=== PATIENT | female | born 1985 | race Caucasian/White ===

== ENCOUNTER 2019-02-20 17:03 | Inpatient (IN) ==
[2019-02-20 18:11] LABS: Basophils # (auto) 0.03 K/uL (0-0.2); Basophils % (auto) 0.2 %; Eosinophils # (auto) 0.16 K/uL (0-0.5); Eosinophils % (auto) 1.1 %; Hematocrit (blood only) 35.2 % (37-47); Hemoglobin 12.2 g/dL (12.0-16.0); Immature Granulocytes # (auto) 0.08 K/uL (0.00-0.02); Immature Granulocytes % (auto) 0.6 %; Lymphocytes # (auto) 3.17 K/uL (1.2-3.4); Lymphocytes % (auto) 21.9 %; Mean Corpuscular Hemoglobin 30.7 pg (25-34); Mean Corpuscular Hgb Conc 34.7 g/dL (32-36); Mean Corpuscular Volume 88.7 fL (80-100); Mean Platelet Volume 13.1 fL (7.4-10.4); Monocytes # (auto) 1.05 K/uL (0.11-0.59); Monocytes % (auto) 7.3 %; Neutrophils # (auto) 9.97 K/uL (1.4-6.5); Neutrophils % (auto) 68.9 %; Nucleated RBC # (auto) 0.02 K/uL (0-0); Nucleated RBC % (auto) 0.1 %; Platelet Count 228 K/uL (130-400); RDW Coefficient of Variation 12.9 % (11.5-14.5); Red Blood Count 3.97 M/uL (4.2-5.4); White Blood Count 14.46 K/uL (4.8-10.8)
[2019-02-20 18:33] LABS: Albumin Level 2.7 gm/dl (3.4-5.0); Bilirubin,Total 0.3 mg/dl (0.2-1); Calcium 9.4 mg/dl (8.5-10.1); Creatinine Clr Calc Pharmacy 136.2 ml/min; Est GFR (African American) 137.6; Est GFR (Non-African American) 118.7; Total Protein 7.2 gm/dl (6.4-8.2)
[2019-02-20 19:13] LABS: Potassium 3.7 mmol/L (3.5-5.1)
[2019-02-20 19:18] LABS: Aspartate Aminotransferase 12 U/L (15-37); Bilirubin Direct < 0.1 mg/dl (0-0.2)
[2019-02-20] MEDS ORDERED: OXYTOCIN 30 UNITS/500 ML BAG IV PRN ×2 (20:01→21:52)
--- NOTE | 2019-02-20 20:06 | History & Physical Report ---
Date of Service February 20, 2019 Here for assessment of increased blood pressure the patient is 37 weeks gestation first baby she has no preeclampsia symptoms such as headaches severe visual changes or right upper quadrant pain her blood pressure was elevated in the office. After 5 minutes her blood pressure was under the 140/90 criteria however I did draw labs and from a -induced hypertension point of view these labs are normal however we did get some increased blood pressures while monitoring her some as high as 160 systolic I spoke to Dr. Field about the case and we agreed at this stage the smarter thing is to induce labor for gestational hypertension patient agrees Assessment & Plan (1) Gestational hypertension: As above we recommend induction I will place a cervical Ram as her cervix is long thick and closed and start Pitocin. We will monitor her blood pressure at this stage I will not start magnesium sulfate and she does not meet severe criteria definitely although we will have to watch her blood pressures closely she also has a pending group B strep status and I will start antibiotics as we will not have this result until after delivery History of Present Illness Primary Care Provider: Oliver Erickson MD Allergies Allergy/AdvReac Type Severity Reaction Status Date / Time Tetracyclines Allergy Intermediate Hives Verified 02/20/19 17:15 Home Medications Home Medications Medication Instructions Recorded Confirmed Type PNV cmb#95-ferrous fumarate-FA 1 tab PO DAILY 02/20/19 02/20/19 History [] calcium carbonate [Tums] 200 mg PO QID PRN 02/20/19 02/20/19 History Patient History Social History Preferred Language: Greenlandic marital status: Feels Safe at Home: Hesitant to Answer Smoking Status: Former smoker Tobacco Type: cigarettes ; Hx Alcohol Use: No Hx Substance Use: No Physical Exam Constitutional: WD/WN, vitals as above Respiratory: normal respiratory effort, lungs clear to auscultation Cardiovascular: RRR, no murmur, no edema Genitourinary: OB Exam Abdomen: + heart tones and + vertex Manual OB Exam: + cervical dilation (LTC) Results & Data Vital Signs (Past 12 Hours) Vital Signs Temp Pulse Resp BP 02/20/19 19:38 82 144/90 H 02/20/19 19:23 71 142/92 H 02/20/19 18:39 78 168/99 H 02/20/19 18:11 80 164/98 H 02/20/19 18:10 79 161/97 H 02/20/19 17:43 18 02/20/19 17:29 76 137/89 02/20/19 17:21 80 150/94 H 02/20/19 17:09 97.7 F 18
[2019-02-20] MEDS ORDERED: PENICILLIN G POTASSIUM 6 MU in DEXTROSE 5% 250 ML IV SCH (20:15)
[2019-02-21] MEDS ORDERED: OXYTOCIN 30 UNITS/500 ML BAG IV PRN ×2 (02:01→17:54)
[2019-02-21] MEDS: LACTATED RINGER'S 1,000 ML IV PRN ×2 (03:44→10:06)
--- NOTE | 2019-02-21 07:18 | Labor Progress Brief Note ---
Date of Service February 21, 2019 Pitocin at 6. Starting to feel mild contyractions Assessment & Plan (1) Gestational hypertension: BP more stable overnight. Pitocin and PCN started. Ram removed and now 4cm. Continue induction for Gestational hypertension Physical Exam Genitourinary: OB Exam Abdomen: + vertex Manual OB Exam: + cervical dilation 4 cm, + cervical effacement 70% and + station -2 Results & Data Vital Signs (Past 12 Hours) Vital Signs Temp Pulse Resp BP 02/21/19 06:17 75 18 135/85 02/21/19 05:17 81 18 141/99 H 02/21/19 03:42 98.2 F 82 20 152/95 H 02/21/19 03:19 98.2 F 16 02/21/19 02:41 88 109/74 02/21/19 01:39 18 02/21/19 01:27 74 106/62 02/21/19 00:27 75 16 125/64 02/20/19 23:27 77 114/71 02/20/19 22:25 90 137/95 02/20/19 20:31 98.1 F 18 02/20/19 19:38 82 144/90 H 02/20/19 19:23 71 142/92 H
[2019-02-21] MEDS: PENICILLIN G POTASSIUM 3 MU in DEXTROSE 5% 100 ML IV PRN ×2 (08:27→12:43)
[2019-02-21] MEDS ORDERED: BUPIVACAINE 0.25% 30 ML VIAL ONE (09:03)
[2019-02-21] MEDS ORDERED: ePHEDrine sulfate 50 MG/ML AMP ONE (09:03)
[2019-02-21] MEDS ORDERED: fentaNYL citrate 100 MCG/2 ML VIAL ONE (09:03)
[2019-02-21] MEDS ORDERED: fentaNYL 2MCG/ML ROPIV 1.25MG/ML 100 ML BAG EPI ONE (09:04)
--- NOTE | 2019-02-21 09:06 | Obstetrical Progress Note ---
Date of Service February 21, 2019 Subjective Comfortable, having some ctx. FHT Cat 1 [place] - not showing ctx SVE /70/-2. AROM performed for clear fluid. After adjustment of toco and AROM, ctx Q 2. Continue pitocin. Patient plans for epidural. Results & Data Vital Signs (Past 12 Hours) Vital Signs Temp Pulse Resp BP 02/21/19 08:17 73 141/91 H 02/21/19 08:02 67 159/99 H 02/21/19 08:00 18 02/21/19 07:19 36.6 C 18 02/21/19 07:18 77 134/89 02/21/19 07:03 18 02/21/19 06:17 75 18 135/85 02/21/19 05:17 81 18 141/99 H 02/21/19 03:42 36.8 C 82 20 152/95 H 02/21/19 03:19 36.8 C 16 02/21/19 02:41 88 109/74 02/21/19 01:39 18 02/21/19 01:27 74 106/62 02/21/19 00:27 75 16 125/64 02/20/19 23:27 77 114/71 02/20/19 22:25 90 137/95 PG Care Time/CCT Total # of Minutes Spent Total Time Spent with Patient: Total time spent is greater than 50% in coordination of care (as documented) at patient's floor/unit and/or counseling patient:
[2019-02-21] MEDS ORDERED: NALBUPHINE HCL INJ 10 MG/ML AMP IV PRN (10:08)
[2019-02-21] MEDS ORDERED: ePHEDrine sulfate 50 MG/ML AMP IV PRN (10:08)
[2019-02-21] MEDS ORDERED: NALOXONE HCL 0.4 MG/1 ML VIAL/CARP IV PRN (10:08)
[2019-02-21] MEDS ORDERED: ONDANSETRON INJ 2 MG/ML 2 ML VIAL IV PRN (10:08)
[2019-02-21] MEDS ORDERED: PROMETHAZINE HCL 6.25 MG in SODIUM CHLORIDE 0.9% 50 ML IV PRN (10:08)
[2019-02-21] MEDS ORDERED: fentaNYL 2MCG/ML ROPIV 1.25MG/ML 100 ML BAG EPI PRN (10:08)
[2019-02-21] MEDS ORDERED: DiphenhydrAMINE HCL 50 MG/ML VIAL IV PRN (10:08)
[2019-02-21] MEDS ORDERED: NALOXONE HCL 1 MG in SODIUM CHLORIDE 0.9% 1000ML 1,000 ML IV PRN (10:08)
--- NOTE | 2019-02-21 10:08 | Anesthesiology Consultation ---
Date of Service February 21, 2019 Assessment & Plan (1) Encounter for pre-operative examination: Chart Review Chart Review: Acceptable Risk for Surgery and Patient NOT seen in Pre Admission Testing Consults Requested none ASA ASA2 Proposed Anesthesia Anesthesia Type: Labor Epidural Risk / Benefits Reviewed With: PT / POA / Parent / Guardian, Accepts Plan and Informed Consent Obtained History Height/Weight Height: 5 ft 4 in Weight: 86.183 kg Allergies Allergy/AdvReac Type Severity Reaction Status Date / Time Tetracyclines Allergy Intermediate Hives Verified 02/20/19 17:15 Medications Home Medications Medication Instructions Recorded Confirmed Last Taken PNV cmb#95-ferrous fumarate-FA 1 tab PO DAILY 02/20/19 02/20/19 02/19/19 02:20 [] calcium carbonate [Tums] 200 mg PO QID PRN 02/20/19 02/20/19 02/19/19 22:30 Active Medications Generic Name Dose Route Start Last Admin Trade Name Freq PRN Reason Stop Dose Admin Penicillin G Potassium 3 mu/ 106 mls @ 100 mls/hr 02/21/19 00:00 02/21/19 09:14 Dextrose IV 03/03/19 00:00 Infused Q4H PRN Infusion Give until delivery Lactated Ringer's 1,000 mls @ 125 mls/hr 02/20/19 20:01 02/21/19 10:06 Lr IV 02/22/19 20:00 999 mls/hr .Q8H PRN Administration L&D Protocol Protocol Oxytocin 30 units in 500 mls @ 10 mls/hr 02/20/19 21:52 02/21/19 08:27 Pitocin IV 02/22/19 21:51 0.6 units/hr .Q24H PRN 10 mls/hr Labor Induction/Augmentation Titration Protocol 0.6 UNITS/HR NPO Date Last Intake of Fluids: 02/21/19 Time Last Intake of Fluids: 08:00 Date Last Intake of Solids: 02/20/19 Time Last Intake of Solids: 21:00 Past Medical History Medical History Bleeding in early Exercise / Class Metabolic Activity II 4-5 Yardwork/Stairs/Walk up hill Past Family History Family History Father Diabetes Hypertension Mother Dyslipidemia Ovarian cyst Uterine leiomyoma Family/Other Ovarian cancer maternal great grandmother Past Surgical History Surgical History S/P wisdom tooth extraction Past Anesthesia History No Hx of Anesthesia Complications and No Family Hx of Anesthesia Complications History of PONV No Hx of PONV and No Hx of Motion Sickness Social History Smoking Status: Former smoker tobacco type: cigarettes Do You Dip or Chew Tobacco: No Hx Alcohol Use: No Hx Substance Use: No substance use type: does not use Physical Exam Vital Signs Last Vital Signs Temp 36.6 C 02/21/19 07:19 Pulse 90 02/21/19 10:05 Resp 18 02/21/19 09:00 BP 129/88 02/21/19 10:05 Pulse Ox 98 02/21/19 10:05 ENMT Mouth: no dentition abnormality Thyromental Distance: > or= 3.5 Finger Breadths Mallampati Class: II Neck normal visual inspection Respiratory normal respiratory effort Auscultation: lungs clear to auscultation bilaterally Cardiovascular Rate/Rhythm: regular rate and regular rhythm Psychiatric Orientation: alert Testing Laboratory Results 02/20/19 17:54 02/20/19 18:49
--- NOTE | 2019-02-21 16:25 | Anesthesia Procedure Note ---
Date of Service February 21, 2019 Anesthesia Post Epidural Note Vital Signs Vital Signs: Temp Pulse Resp BP Pulse Ox 36.6 C 75 18 133/83 90 02/21/19 14:09 02/21/19 16:11 02/21/19 13:00 02/21/19 16:11 02/21/19 13:36 Pain Intensity Lower Abdomen: Pain Intensity: 0 Notes Mental Status: alert / awake / arousable Nausea / Vomiting: adequately controlled Pain: adequately controlled Airway Patency, RR, SpO2: stable & adequate BP & HR: stable & adequate Hydration State: stable & adequate Neuraxial Anesthesia: was administered and sensory block is resolving Anesthetic Complications: no major complications apparent and Pt Satisfied with anesthetic care Epidural: Removed without complications and With tip intact
[2019-02-21] MEDS ORDERED: BISACODYL 10 MG SUPP PR PRN (17:54)
[2019-02-21] MEDS ORDERED: DIPHTHERIA/TETANUS/PERTUSSIS 0.5 ML SYR/VIAL IM ONE (17:54)
[2019-02-21] MEDS ORDERED: BENZOCAINE 20% AER SPR 82.5 GM CAN EXT PRN (17:54)
[2019-02-21] MEDS ORDERED: ACETAMINOPHEN 325 MG TAB PO PRN (17:54)
[2019-02-21] MEDS ORDERED: SUPERCREAM 0.870% 15 GM JAR EXT PRN (17:54)
[2019-02-21] MEDS ORDERED: OXYCODONE/ACETAMINOPHEN 5mg/325mg TAB PO PRN (17:54)
[2019-02-21] MEDS ORDERED: HYDROCORTISONE ACETATE 25 MG SUPP PR PRN (17:54)
[2019-02-21] MEDS ORDERED: CALCIUM CARBONATE 500 MG CHEWABLE TAB PO PRN (17:54)
--- NOTE | 2019-02-21 17:55 | Delivery Summary ---
Vaginal Delivery Summary Date of Service February 21, 2019 Vaginal Delivery Summary Vaginal Delivery Summary: Pre-delivery diagnoses: 33yo @ 37 04/23, IOL for gestational hypertension Post-delivery diagnoses: same, partial 3rd degree laceration Procedure: spontaneous vaginal delivery Surgeon: Gay Miranda DO Complications: none Findings: Viable male . Apgars: 8/9 . Weight pending, please see nursery records. Estimated blood loss: 300ml Description of delivery: The patient progressed to complete with epidural anesthesia. She then began to push. She spontaneously vaginally delivered a viable from the cephalic presentation. The head delivered in ROBINSON position. The anterior shoulder delivered, followed by the posterior shoulder, followed by the body. Tight nuchal cord, unable to reduce, delivered through. The baby was placed on mother's abdomen and a spontaneous cry was heard. Delayed cord clamping was employed, and the cord was doubly clamped and cut. Cord blood was obtained. The placenta was delivered spontaneously intact with a 3-vessel cord. The uterus and vagina were swept of clots and debris. IV pitocin was given. The uterus became firm. The cervix, vagina, and perineum were inspected, and a partial 3rd degree perineal laceration was noted. The anal sphincter was partially , and was reapproximated with 3-0 Chromic in two [id number] sutures. The remaining laceration was reapproximated with 3-0 vicryl in standard fashion. Excellent hemostasis was observed. The mother and baby are recovering in stable and good condition in the room. Sponge and instrument counts were correct x 2. Gay Miranda DO [facility] [place]
[2019-02-21] MEDS: IBUPROFEN 600 MG TAB PO PRN (18:42)
[2019-02-21] MEDS: DOCUSATE SODIUM 100 MG CAP PO SCH (21:18)
[2019-02-22] MEDS: IBUPROFEN 600 MG TAB PO PRN ×4 (02:33→23:17)
[2019-02-22 06:52] LABS: Hematocrit (blood only) 33.4 % (37-47); Hemoglobin 11.2 g/dL (12.0-16.0)
[2019-02-22 07:30] LABS: Albumin Level 2.7 gm/dl (3.4-5.0); Calcium 9.4 mg/dl (8.5-10.1); Est GFR (African American) 136.2; Est GFR (Non-African American) 117.5; Potassium 4.2 mmol/L (3.5-5.1)
[2019-02-22 07:33] LABS: Albumin Globulin Ratio 0.7 (0.9-2); Bilirubin,Total 0.3 mg/dl (0.2-1); Globulin 4.1 gm/dl (2.5-4.0); Total Protein 6.8 gm/dl (6.4-8.2)
--- NOTE | 2019-02-22 07:51 | Obstetrical Progress Note ---
Date of Service <Ivan Fonseca DO - Last Filed: 02/22/19 07:51> February 22, 2019 Assessment & Plan <DO Amara Levi Last Filed: 02/22/19 07:51> (1) : -PPD#1 -Vitals reviewed, WNL (Tmax 36.7) - GBS pending, penicillin was given prepartum, Blood Type A+ - Clinically stable. - Feels well today. Eating well, voiding well, ambulating well. - Pain well controlled. - Routine post- care - After discharge will have [address] Miranda. Day #:: 1 Subjective <DO Amara Levi Last Filed: 02/22/19 07:51> Ambulation: ambulating normally Voiding: no voiding problems Passing Gas:: No Diet Tolerance:: regular diet Lochia:: Moderate Feeding Type:: breast feeding Current Pain Level(1-10): 6 (with movement, improves with analgesics) Patient is a 33 PPD#1. Patient states that she is feeling well today and that her pain is well controlled. She has no other complaints at this time. Constitutional: no fever and no chills Respiratory: no cough, no dyspnea and no wheezing Cardiovascular: no chest pain, no dyspnea, no palpitations, no edema and no calf pain Breast: + breast pain (while pumping) Gastrointestinal: no abdominal pain, no nausea and no vomiting Genitourinary (female): no dysuria and no difficulty urinating Neurologic: no headache(s) Physical Exam <DO Amara Levi Last Filed: 02/22/19 07:51> Constitutional WD/WN, vitals as above Respiratory normal respiratory effort, lungs clear to auscultation Cardiovascular Rate/Rhythm: regular rate and regular rhythm Heart Sounds: normal S1 and normal S2; no click, no gallop, no murmur and no cardiac rub Extremities: + edema (+1); no calf tenderness Gastrointestinal (Abdomen) Inspection/Auscultation: abdomen normal to inspection and normal bowel sounds Percussion/Palpation: abdomen soft; abdomen nontender Genitourinary OB Exam Abdomen: + fundal height Fundus: + firm and + relation to umbilicus (2cm below); not tender and not boggy Results & Data <DO Amara Levi Last Filed: 02/22/19 07:51> Vital Signs (Past 12 Hours) Vital Signs Temp Pulse Pulse Pulse Resp BP BP 02/22/19 07:23 36.6 C 77 20 141/86 H 02/22/19 04:45 36.6 C 66 18 120/80 02/21/19 23:15 36.7 C 76 18 123/80 02/21/19 21:20 83 125/86 02/21/19 20:00 36.9 C 86 86 20 143/94 H 143/94 H Pulse Ox 02/22/19 07:23 97 02/22/19 04:45 97 02/21/19 23:15 96 02/21/19 21:20 02/21/19 20:00 95 Laboratory Results Abnormal lab results 02/22/19 02/22/19 Range/Units 06:39 06:39 Hgb 11.2 L (12.0-16.0) g/dL Hct 33.4 L (37-47) % Chloride 109 H (98-107) mmol/L ALT 11 L (12-78) U/L Albumin 2.7 L (3.4-5.0) gm/dl Globulin 4.1 H (2.5-4.0) gm/dl Albumin/Globulin Ratio 0.7 L (0.9-2) Medications Administered Current Inpatient Medications Acetaminophen (Tylenol) 650 mg PO Q6H PRN PRN Reason: Pain/[place]ILLA/Fever Stop: 03/23/19 17:53 Benzocaine (Dermoplast Pain Relieving [place]) 1 appln EXT PRN PRN PRN Reason: Perineal Discomfort Stop: 03/23/19 17:53 Last Admin: 02/21/19 18:43 Dose: 82.5 appln Documented by: Bisacodyl (Dulcolax) 5 mg PO 2000 LAITH Stop: 02/22/19 20:01 Bisacodyl (Dulcolax) 10 mg MA DAILY PRN PRN Reason: No BM on 2nd post- day Stop: 03/23/19 17:53 Calcium Carbonate (Tums) 200 mg PO QID PRN PRN Reason: Heartburn Stop: 03/23/19 17:53 Cocaine HCl (Supercream 0.870%) 1 gm EXT BID PRN PRN Reason: Hemorrhoidal Inflammation Stop: 03/07/19 17:53 Docusate Sodium (Colace) 100 mg PO DAILY@08, LAITH Stop: 03/23/19 20:59 Last Admin: 02/21/19 21:18 Dose: 100 mg Documented by: Hydrocortisone (Anusol Hc) 25 mg MA BID PRN PRN Reason: Hemorrhoidal Inflammation Stop: 03/23/19 17:53 Oxytocin (Pitocin) 30 units in 500 mls @ 333.333 mls/hr IV .Q1H30M PRN; Protocol PRN Reason: Bleeding Control Stop: 03/23/19 17:53 Ibuprofen (Motrin) 600 mg PO Q4H PRN PRN Reason: Pain/[place]/Cramping/Fever Stop: 03/23/19 17:53 Last Admin: 02/22/19 02:33 Dose: 600 mg Documented by: Oxycodone/Acetaminophen (Percocet 5mg/325mg) 1 tab PO Q4H PRN PRN Reason: Pain not relieved by... Stop: 03/07/19 17:53 Last Admin: 02/21/19 20:24 Dose: 1 tab Documented by: Prenat Multivit/[place]/Iron/Folic Ac ( Vitamin) 1 tab PO DAILY@08 [facility] Stop: 03/24/19 07:59 <Gay Miranda DO - Last Filed: 02/22/19 08:01> Co-Signing Physician Notes Resident Physician Supervision Note: I was present with Dr. Fonseca during the history and exam. I discussed the case with the resident and agree with the findings and plan as documented in the note. Any exceptions or clarifications are listed here: PPD#1 doing well. anticipate DC home tomorrow. Documented By: Gay Miranda DO Resident Activity Tracking <Ivan Fonseca DO - Last Filed: 02/22/19 07:51> Resident Involvement: Resident Care Provided Care Provided: Adult Hospital Medicine
[2019-02-22] MEDS: PRENATAL VITAMIN 1 TAB PO SCH (09:23)
[2019-02-22] MEDS: DOCUSATE SODIUM 100 MG CAP PO SCH ×2 (09:24→20:23)
[2019-02-22] MEDS ORDERED: BISACODYL 5 MG TABEC PO SCH (20:00)
[2019-02-22 23:52] VITALS: O2SAT 96
--- NOTE | 2019-02-23 06:25 | Obstetrical Progress Note ---
Date of Service <Ivan Fonseca DO - Last Filed: 02/23/19 06:25> February 23, 2019 Assessment & Plan <Ivan Fonseca DO - Last Filed: 02/23/19 06:25> (1) : -PPD#2 -Vitals reviewed, WNL (Tmax 36.8) - GBS -, penicillin was given prepartum since GBS was pending and patient was at 37w 1d at the time, Blood Type A+ - Clinically stable. - Feels well today. Eating well, voiding well, ambulating well. - Pain well controlled. - Routine post- care - Anticipate discharge today - After discharge will have [address] Miranda. Day #:: 2 Subjective <Ivan Fonseca DO - Last Filed: 02/23/19 06:25> Ambulation: ambulating normally Voiding: no voiding problems Passing Gas:: Yes (and stool) Diet Tolerance:: regular diet Lochia:: Small Feeding Type:: bottle feeding Current Pain Level(1-10): 2 (improves with analgesics) Patient is a 33 PPD#1. Patient states that she is feeling well today and that her pain is well controlled. She has no other complaints at this time. Constitutional: no fever and no chills Respiratory: no cough, no dyspnea and no wheezing Cardiovascular: + edema; no chest pain, no dyspnea, no palpitations and no calf pain Breast: no breast pain Gastrointestinal: no abdominal pain, no nausea and no vomiting Genitourinary (female): no dysuria and no difficulty urinating Neurologic: + headache(s) (yesterday, resolved this AM) Physical Exam <DO Amara Levi Last Filed: 02/23/19 06:25> Constitutional WD/WN, vitals as above Respiratory normal respiratory effort, lungs clear to auscultation Cardiovascular Rate/Rhythm: regular rate and regular rhythm Heart Sounds: normal S1 and normal S2; no click, no gallop, no murmur and no cardiac rub Extremities: + edema (+1); no calf tenderness Gastrointestinal (Abdomen) Inspection/Auscultation: abdomen normal to inspection and normal bowel sounds Percussion/Palpation: abdomen soft; abdomen nontender Genitourinary OB Exam Abdomen: + fundal height Fundus: + firm and + relation to umbilicus (2cm below); not tender and not boggy Results & Data <Ivan VenegasDO ban - Last Filed: 02/23/19 06:25> Vital Signs (Past 12 Hours) Vital Signs Temp Pulse Resp BP Pulse Ox 02/22/19 23:10 36.5 C 77 16 132/83 96 02/22/19 20:25 36.7 C 86 16 129/87 95 Laboratory Results Abnormal lab results 02/22/19 02/22/19 Range/Units 06:39 06:39 Hgb 11.2 L (12.0-16.0) g/dL Hct 33.4 L (37-47) % Chloride 109 H (98-107) mmol/L ALT 11 L (12-78) U/L Albumin 2.7 L (3.4-5.0) gm/dl Globulin 4.1 H (2.5-4.0) gm/dl Albumin/Globulin Ratio 0.7 L (0.9-2) Medications Administered Current Inpatient Medications Acetaminophen (Tylenol) 650 mg PO Q6H PRN PRN Reason: Pain/[place]/Fever Stop: 03/23/19 17:53 Benzocaine (Dermoplast Pain Relieving [place]) 1 appln EXT PRN PRN PRN Reason: Perineal Discomfort Stop: 03/23/19 17:53 Last Admin: 02/21/19 18:43 Dose: 82.5 appln Documented by: Bisacodyl (Dulcolax) 10 mg MA DAILY PRN PRN Reason: No BM on 2nd post- day Stop: 03/23/19 17:53 Calcium Carbonate (Tums) 200 mg PO QID PRN PRN Reason: Heartburn Stop: 03/23/19 17:53 Cocaine HCl (Supercream 0.870%) 1 gm EXT BID PRN PRN Reason: Hemorrhoidal Inflammation Stop: 03/07/19 17:53 Docusate Sodium (Colace) 100 mg PO DAILY@08, LAITH Stop: 03/23/19 20:59 Last Admin: 02/22/19 20:23 Dose: 100 mg Documented by: Hydrocortisone (Anusol Hc) 25 mg MA BID PRN PRN Reason: Hemorrhoidal Inflammation Stop: 03/23/19 17:53 Oxytocin (Pitocin) 30 units in 500 mls @ 333.333 mls/hr IV .Q1H30M PRN; Protocol PRN Reason: Bleeding Control Stop: 03/23/19 17:53 Ibuprofen (Motrin) 600 mg PO Q4H PRN PRN Reason: Pain/[place]/Cramping/Fever Stop: 03/23/19 17:53 Last Admin: 02/22/19 23:17 Dose: 600 mg Documented by: Oxycodone/Acetaminophen (Percocet 5mg/325mg) 1 tab PO Q4H PRN PRN Reason: Pain not relieved by... Stop: 03/07/19 17:53 Last Admin: 02/21/19 20:24 Dose: 1 tab Documented by: Prenat Multivit/[place]/Iron/Folic Ac ( Vitamin) 1 tab PO DAILY@08 LAITH Stop: 03/24/19 07:59 Last Admin: 02/22/19 09:23 Dose: 1 tab Documented by: <Barbra Lam MD, FACOG - Last Filed: 02/23/19 07:58> Co-Signing Physician Notes Resident Physician Supervision Note: I interviewed and examined the patient. Discussed with Dr. Fonseca and agree with findings and plan as documented in the note. Any exceptions or clarifications are listed here: Doing well. Plan d/c home. Pressures are overall ok. No s/s of pet. Will f/u in the office within the week for check. Reviewed the s/s of pet and to call if any concerns. Documented By: Barbra Lam MD, FACOG Resident Activity Tracking <Ivan Fonseca DO - Last Filed: 02/23/19 06:25> Resident Involvement: Resident Care Provided Care Provided: OB Delivery
[2019-02-23] MEDS: DOCUSATE SODIUM 100 MG CAP PO SCH (08:27)
[2019-02-23] MEDS: IBUPROFEN 600 MG TAB PO PRN ×2 (08:27→12:38)
[2019-02-23] MEDS: PRENATAL VITAMIN 1 TAB PO SCH (08:27)
[2019-02-23 10:21] VITALS: PULSE 95; TEMP 99
[2019-02-23 14:03] VITALS: BP 148/94
== END 2019-02-23 13:00 | disposition home or self-care (01) | DRG 768 ==
LOC: 4S1 17:03 → OPB 17:03 → 4S1 20:01 → 4S2 02-21 17:13